=== PATIENT | female | born 1995 | race African-American/Black ===

== ENCOUNTER 2016-06-27 12:37 | Emergency (ER) | payer OTHER ==
[2016-06-27 13:10] VITALS: BP 123/78
--- NOTE | 2016-06-27 13:28 | UC ---
Ear Complaint HPI - HPI Summary HPI Summary: She complains of left ear pain that started three days ago. She had felt a pimple in her left ear and had irritated the area. Now, she is experiencing left sided jaw pain and headaches. - History of Current Complaint Chief Complaint: UCEar Stated Complaint: EAR PAIN (LT) Time Seen by Provider: 06/27/16 13:05 Hx Obtained From: Patient Hx Last Menstrual Period: on control Onset/Duration: Gradual Onset Severity Initially: Mild Severity Currently: Mild Aggravating Factors: Nothing Alleviating Factors: OTC Meds - Allergies/Home Medications Allergies/Adverse Reactions: Allergies Allergy/AdvReac Type Severity Reaction Status Date / Time No Known Allergies Allergy Unverified 01/02/13 15:43 PMH/Surg Hx/FS Hx/Imm Hx Previously Healthy: Yes Endocrine History Of: Denies: Diabetes, Thyroid Disease, Hyperthyroidism, Hypothyroidism Cardiovascular History Of: Denies: Cardiac Disorders, Hypertension Respiratory History Of: Denies: COPD, Asthma GI/ History Of: Denies: Ulcer Neurological History Of: Denies: TIA, Seizures Psychological History Of: Denies: Anxiety, Depression - Surgical History Surgical History: None - Social History Occupation: Employed Full-time Alcohol Use: Rare Substance Use Type: None Smoking Status (MU): Never Smoked Tobacco Review of Systems Constitutional: Negative Skin: Negative Eyes: Negative ENT: Ear Ache, Other - Headache and jaw pain Respiratory: Negative Cardiovascular: Negative Gastrointestinal: Negative Genitourinary: Negative Motor: Negative Neurovascular: Negative Musculoskeletal: Negative Neurological: Negative Psychological: Negative All Other Systems Reviewed And Are Negative: Yes Physical Exam Triage Information Reviewed: Yes Appearance: Well-Appearing, No Pain Distress, Well-Nourished Vital Signs: Initial Vital Signs Temp 96.8 F 06/27/16 13:07 Pulse 85 06/27/16 13:07 Resp 16 06/27/16 13:07 BP 123/78 06/27/16 13:07 Pulse Ox 97 06/27/16 13:07 Vital Signs Reviewed: Yes Eye Exam: Normal Eyes: Positive: Conjunctiva Clear ENT Exam: Other ENT: Positive: TMs normal - fluid behind right TM, Other: - tenderness on palpation over left side of jaw Neck exam: Normal Neck: Positive: Supple, Nontender, No Lymphadenopathy Respiratory Exam: Normal Respiratory: Positive: Chest non-tender, Lungs clear, Normal breath sounds, No respiratory distress Cardiovascular Exam: Normal Cardiovascular: Positive: RRR, No Murmur Musculoskeletal Exam: Normal Musculoskeletal: Positive: Strength Intact Neurological Exam: Normal Neurological: Positive: Alert, Muscle Tone Normal Psychological Exam: Normal Psychological: Positive: Age Appropriate Behavior Skin Exam: Normal Ear Complaint Course/Dx - Course Course Of Treatment: This is most 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 We have eduated the patient on causes of TMJ. We will have her take Naproxen regularly to help with pain and inflammation. She is to follow-up with her primary care provider as needed. - Differential Dx/Diagnosis Differential Diagnosis/HQI/PQRI: Otitis Externa, Otitis Media, Perforated TM, TMJ Syndrome Provider Diagnoses: TMJ Syndrome Discharge - Discharge Plan Condition: Stable Disposition: HOME Prescriptions: Naproxen [Naproxen 500 MG TABS] 500 mg PO BID #20 tab Patient Education Materials: Temporomandibular Disorder (ED) Print Language: [place] Referrals: Claudia Rodriguez NP [Primary Care Provider] - Additional Instructions: This pain is most likely caused by Temporomandibular Disorder or more commonly referred to as TMJ. Take Naproxen for pain as scheduled. Avoid putting anything in your ear. Follow-up with your primary care provider as needed.
== END 2016-06-27 13:50 | disposition home or self-care (01) ==
LOC: UCEAST 12:37
DX: M26.609 Unspecified temporomandibular joint disorder, unspecified side (principal)
CPT/HCPCS: 99211; G0463